=== PATIENT | male | born 1950 | race Two or more races ===

== ENCOUNTER 2021-11-14 14:00 | Outpatient (REF) | payer MEDICARE, SELFPAY ==
[2021-11-14 14:35] LABS: Estimated Average Glucose 114 mg/dL; Hemoglobin A1c % 5.6 %
[2021-11-14 14:46] LABS: Alanine Aminotransferase 25 U/L (0-40); Albumin Level 4.4 g/dL (3.5-5.0); Alkaline Phosphatase 59 U/L (39-117); Anion Gap 11 (12-20); Aspartate Amino Transferase 15 U/L (5-37); Bilirubin Total 0.2 mg/dL (0.0-1.0); Blood Urea Nitrogen 16 mg/dL (9-16); Calcium 10.3 mg/dL (8.4-10.2); Carbon Dioxide 29 mmol/L (22-29); Chloride 106 mmol/L (96-108); Estimated Glomerular Filt Rate > 60; Glucose Random 104 mg/dL (60-115); Potassium 4.5 mmol/L (3.3-5.1); Sodium 141 mmol/L (135-145); Total Protein 7.4 g/dL (6.5-8.0)
[2021-11-14 15:06] LABS: Prostate Specific Antigen 2.25 ng/mL (<0.05-4.0)
== END 2021-11-14 14:01 | disposition home or self-care (01) ==
LOC: HO.LAB 14:00
PROVIDERS: PCP Internal Medicine; Visit Provider Internal Medicine
DX: E11.9 Type 2 diabetes mellitus without complications (principal); E78.00 Pure hypercholesterolemia, unspecified; F33.42 Major depressive disorder, recurrent, in full remission; K22.70 Barrett's esophagus without dysplasia; M19.90 Unspecified osteoarthritis, unspecified site; N40.1 Benign prostatic hyperplasia with lower urinary tract symptoms; N13.8 Other obstructive and reflux uropathy; Z12.5 Encounter for screening for malignant neoplasm of prostate
CPT/HCPCS: 36415; 80053; 83036; 84153

== ENCOUNTER 2021-11-18 18:14 | Emergency (ER) | payer MEDICARE, MEDICAID, SELFPAY ==
[2021-11-18 18:36] VITALS: BP 134/73; PULSE 64; RESP 18; TEMP 36.7; O2SAT 98
[2021-11-18 18:58] LABS: COVID-19 Test Negative (Negative)
[2021-11-18 19:33] VITALS: BMI 26.1
--- NOTE | 2021-11-18 20:06 | ED_ITS ---
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 He presents with his with similar symptoms. He is fully vaccinated for COVID-19 with all 3 vaccines. He did have a family gathering around [place] time with a family member who is known to be ill. Unknown if this person has been diagnosed with COVID or not. He denies any fever or chills. His main complaint is diffuse body aches. He does have a mild dry cough but had denies any shortness of breath or chest pain. No fevers at home. MD elicited complaint: cough and other (Headache and body aches) Onset (ago): day(s) (1) Consistency: intermittent Severity: mild Able to tolerate fluids by mouth: Yes Exacerbating factors: nothing Relieving factors: nothing Context: sick contacts Associated symptoms: myalgias, headache, nasal congestion and cough Treatments prior to arrival: none Related Data Allergies Allergy/AdvReac Type Severity Reaction Status Date / Time No Known Allergies Allergy Mild NKA Unverified 08/05/20 17:28 Review of Systems Review of Systems: Constitutional: No Fever, No Chills ENT/Mouth: No sore throat, No Rhinorrhea, No Swallowing Difficulty Cardiovascular: No Chest Pain, No SOB Respiratory: + Cough, No Sputum Gastrointestinal: No Nausea, No Vomiting, No abdominal Pain Musculoskeletal: No joint pain, + Myalgias Skin: No Skin Lesions, No rash Neuro: No Weakness, No Numbness, No Dizziness, + Headache Heme/Lymph: No Lymphadenopathy PMFSH Social History Social History Advance Directives: No Physical Exam Vital Signs: Vital Signs: Last Vital Signs Temp 98.1 F 11/18/21 18:36 Pulse 64 11/18/21 18:36 Resp 18 11/18/21 18:36 BP 134/73 11/18/21 18:36 Pulse Ox 98 11/18/21 18:36 BMI result Body Mass Index 26.1 Appearance: Alert. Oriented X3. No acute distress. Eyes: Pupils equal, round and reactive to light. ENT: Pharynx normal. Neck: Normal inspection. Neck supple. CVS: Normal heart rate and rhythm. Pulses normal. Respiratory: No respiratory distress. Breath sounds normal. Skin: Skin warm and dry. Normal skin color. Normal skin turgor. No rashes. Extremities: No lower extremity edema. No calf tenderness. Neuro: Oriented X 3. Grossly normal, nonfocal Course Course Course Narrative: 8-year-old male presents to the ER with body aches, headache, dry cough that started yesterday. He presents as was the same symptoms. They have known exposure to ill family member. Unknown if COVID. Exam is benign and vital signs are normal on arrival. Presentation is consistent with COVID-19 versus other viral syndrome. Rapid antigen test is negative. Will send PCR test for COVID, influenza and RSV. MDM - URI/Sore Throat Lab Data Labs: Lab Results 11/18/21 Range/Units 18:34 COVID-19 ([facility]EL[facility]) Negative (Negative) COVID-19 Clin Com See Note Critical Care Time Critical Care Time Critical Care Time: No Discharge Plan Discharge Clinical Impression: Acute viral syndrome Patient Disposition: Home, Self-Care
[2021-11-18 20:29] LABS: Influenza A PCR NEGATIVE (Negative); Influenza B PCR NEGATIVE (Negative); Resp Syncy Virus RNA Qual PCR NEGATIVE (Negative); SARS COV2 PCR INHOUSE NEGATIVE (Negative)
== END 2021-11-18 22:42 | disposition home or self-care (01) ==
PROVIDERS: Physician Assistant; Emergency Provider Internal Medicine; PCP Internal Medicine
DX: B34.9 Viral infection, unspecified (principal); Z20.822 Contact with and (suspected) exposure to COVID-19
CPT/HCPCS: 0241U; 36415; 87635; 99283

== ENCOUNTER → 2022-05-18 09:36 | Outpatient (BNVA) | payer MEDICARE, MEDICAID, SELFPAY | PROVIDERS: PCP Internal Medicine; Visit Provider Urology | DX: N50.819 Testicular pain, unspecified (principal) | CPT/HCPCS: 51798; 99202 ==

== ENCOUNTER 2022-07-03 13:21 | Outpatient (REF) | payer MEDICARE, MEDICAID, SELFPAY ==
--- NOTE | ~2022-07-03 | XR_ITS ---
EXAMINATION: XR SHOULDER, RIGHT CLINICAL INFORMATION: Shoulder pain COMPARISON: None TECHNIQUE: Right shoulder is imaged in 3 views. FINDINGS: No fracture, dislocation, destructive process. The glenohumeral joint shows no narrowing or erosive change. There is fine subcortical cyst near rotator cuff insertion greater tuberosity. The acromioclavicular alignment is normal. There are no visible rotator cuff calcifications. XR/XR shoulder RT min 2V IMPRESSION: Unremarkable right shoulder.
== END 2022-07-03 13:22 | disposition home or self-care (01) ==
LOC: HO.HOSX 13:21
PROVIDERS: Visit Provider Orthopaedic Surgery
DX: M25.511 Pain in right shoulder (principal); M75.41 Impingement syndrome of right shoulder
CPT/HCPCS: 20610; 73030; 99202; J1100

== ENCOUNTER 2022-08-11 12:00 | Outpatient (RCR) | payer MEDICARE, MEDICAID, SELFPAY ==
[2022-07-14 09:15] VITALS: BP 152/70; PULSE 56; O2SAT 98
--- NOTE | 2022-08-16 13:29 | MHC.PT.DC ---
[facility] [place] Office [place] Office [place] Office [address] Boogie Crowder [address] [phone] F: [phone] F: [phone] F: [phone] F: [phone] Physical Therapy Discharge Report Diagnosis: Rt SHOULDER IMPINGEMENT SYNDROME Date of Surgery: Date of Evaluation: 07/14/22 Date of Discharge: 08/16/22 Treatments to Date: 7 Cancellations to Date: No Shows to Date: 1 Discharge Status: Achieved Goals Improved Function Independent with HEP Discharge Summary: Pt PROGRESSED WELL IN PT EVIDENT W IMPROVED SPADI SCORE -> AT EVAL 109/130 AND AT D/C 61/130. HIS SUBJECTIVE PAIN RATING HAS SIGNIF RESOLVED AND HE HAS BAAN ABLE TO RESUME REG ADLs/ HOBBIES W/O SXS. HE IS D/C'D AT THIS TIME W [facility]IS HEP Electronically signed by: BENTON POWELL,PT Please sign and return to therapist. Thank you for your referral.
== END 2022-08-16 13:29 | disposition home or self-care (01) ==
LOC: HO.PT 12:00
PROVIDERS: PCP Internal Medicine; Visit Provider Orthopaedic Surgery
DX: M75.41 Impingement syndrome of right shoulder (principal)
CPT/HCPCS: 97110; 97140; 97161; 97530

== ENCOUNTER → 2022-08-21 12:33 | Outpatient (BNVA) | payer MEDICARE, MEDICAID, SELFPAY | PROVIDERS: PCP Internal Medicine; Visit Provider Orthopaedic Surgery | DX: M75.41 Impingement syndrome of right shoulder (principal) | CPT/HCPCS: 99212 ==

== ENCOUNTER 2022-09-08 10:16 | Outpatient (REF) | payer MEDICARE, MEDICAID, SELFPAY ==
--- NOTE | ~2022-09-08 | MR_ITS ---
EXAMINATION: MR SHOULDER WITHOUT CONTRAST, RIGHT CLINICAL INFORMATION: Impingement syndrome. COMPARISON: X-ray of the right shoulder June 2022. TECHNIQUE: MRI of the shoulder without contrast was performed on a high-field scanner. Exam is limited as the patient could only tolerate a single series, the axial PD fat-sat sequence. FINDINGS: Exam is limited as the patient could not complete more than 1 series of the examination. ROTATOR CUFF: Limited evaluation. Tendinosis of the distal subscapularis. Suspect insertional tear of this supraspinatus the tendon measuring up to 2 cm AP. Suspect abnormality of the infraspinatus likely reflecting tendinosis or intrasubstance partial tearing. Teres minor normal. BICEPS: Evaluation is limited. Biceps appears intact. CORACOACROMIAL ARCH: Mild arthrosis of the acromioclavicular joint. BURSA: Increased fluid in the subacromial subdeltoid bursa. LABRUM/CAPSULE: Evaluation is limited. No definite abnormality. GLENOHUMERAL JOINT/MARROW: Evaluation is limited. No apparent arthrosis. Mild joint effusion and synovitis. MR/MR shoulder RT wo con IMPRESSION: 1. Exam is limited as the patient could not complete the exam. Only a single axial series was performed. Recommend repeat examination perhaps with medication to help the patient through the procedure. Alternatively the patient could undergo ultrasound or CT arthrography to assess for rotator cuff tear. 2. Probable insertional full-thickness tear of the supraspinatus. 3. Tendinosis of the subscapularis. Probable scattered areas of interstitial partial tearing and tendinosis of the infraspinatus. 4. Mild arthrosis of the acromioclavicular joint. 5. Increased fluid in the subacromial subdeltoid bursa compatible with bursitis. 6. Mild joint effusion and synovitis of the glenohumeral joint.
== END 2022-09-08 10:17 | disposition home or self-care (01) ==
LOC: HO.MRI 10:16
PROVIDERS: PCP Internal Medicine; Visit Provider Orthopaedic Surgery
DX: M75.41 Impingement syndrome of right shoulder (principal)
CPT/HCPCS: 73221

== ENCOUNTER → 2022-09-14 14:05 | Outpatient (BNVA) | payer MEDICARE, MEDICAID, SELFPAY | PROVIDERS: PCP Internal Medicine; Visit Provider Orthopaedic Surgery | DX: M75.41 Impingement syndrome of right shoulder (principal) | CPT/HCPCS: 20610; 99212; J1100 ==

== ENCOUNTER 2024-01-06 10:07 | Emergency (ER) | payer MEDICARE, MEDICAID, SELFPAY ==
--- NOTE | ~2024-01-06 | XR_ITS ---
EXAMINATION: XR CHEST CLINICAL INFORMATION: Dizziness COMPARISON: None available. TECHNIQUE: Frontal view of the chest was obtained. FINDINGS: The cardiomediastinal silhouette is within normal limits. The lungs are well expanded. There is no focal consolidation, edema, or effusion. No pneumothorax. No acute osseous abnormality. XR/XR chest 1V IMPRESSION: No acute pulmonary process.
[2024-01-06 10:13] VITALS: BP 156/79; PULSE 94; RESP 18; TEMP 36.9; O2SAT 98; BMI 26.9
--- NOTE | 2024-01-06 10:17 | ECG_ITS ---
Test Reason : DIZZY Blood Pressure : / mmHG Vent. 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
[2024-01-06 10:50] LABS: MANUAL DIFF FLAG NO
[2024-01-06 11:00] LABS: Basophils Percent Auto 0.6 % (0-2); Eosinophils Percent Auto 0.3 % (0-4); Hematocrit 43.8 % (42.0-52.0); Hemoglobin 14.8 g/dl (14.0-18.0); Imm Gran Abs Auto 0.02 X10*3/uL (0.00-0.03); Imm Gran Pct Auto 0.3 % (0.0-0.4); Lymphocytes Absolute Auto 0.8 X10*3/uL (1.2-4.9); Mean Corpuscular HGB Conc 33.8 g/dl (31.0-36.0); Mean Corpuscular Hemoglobin 27.4 pg (27.0-33.0); Mean Corpuscular Volume 81.1 fL (80.0-98.0); Mean Platelet Volume 12.9 fL (9.4-12.4); Monocytes Absolute Auto 0.9 X10*3/uL (0.1-1.2); Monocytes Percent Auto 13.1 % (2-11); Neutrophils Absolute Auto 4.9 x10*3/uL (2.0-8.3); Neutrophils Percent Auto 73.7 % (45-73); Platelet Count 126 X10*3/uL (160-400); Red Cell Distribution Width 14.3 % (11.0-16.0); White Blood Count 6.6 X10*3/uL (4.8-10.8)
[2024-01-06 11:10] LABS: Alanine Aminotransferase 16 U/L (0-40); Albumin Level 4.6 g/dL (3.5-5.0); Alkaline Phosphatase 72 U/L (39-117); Anion Gap 12 (12-20); Aspartate Amino Transferase 14 U/L (5-37); Bilirubin Direct 0.2 mg/dL (0.0-0.5); Bilirubin Total 0.4 mg/dL (0.0-1.0); Blood Urea Nitrogen 14 mg/dL (9-16); Carbon Dioxide 23 mmol/L (22-29); Chloride 106 mmol/L (96-108); Creatinine Clr Calc Pharmacy 62.9; Estimated Glomerular Filt Rate > 60; Glucose Random 101 mg/dL (60-115); Potassium 3.9 mmol/L (3.3-5.1); Sodium 137 mmol/L (135-145)
[2024-01-06 11:23] VITALS: BP 155/75; PULSE 75; RESP 22; TEMP 38.3; O2SAT 97
[2024-01-06 11:29] LABS: Influenza A PCR NEGATIVE (Negative); Influenza B PCR NEGATIVE (Negative); Resp Syncy Virus RNA Qual PCR NEGATIVE (Negative); SARS COV2 PCR INHOUSE NEGATIVE (Negative)
--- NOTE | 2024-01-06 12:17 | ED.GENADULT ---
HPI - General Adult General Chief complaint: Fever Stated complaint: Fever, dizziness Time Seen by Provider: 01/06/24 11:59 Source: patient Mode of arrival: ambulatory Limitations: no limitations History of Present Illness HPI narrative: 73 years old male presented to the emergency department complaining of cough congestion fever since yesterday denies any vomiting any diarrhea any abdominal pain. Onset (ago): day(s) (1) Radiation: non-radiation Severity: mild Related Data Home Medications Medication Instructions Recorded Confirmed fluoxetine 20 mg capsule 20 mg PO QAM 07/03/22 naproxen 500 mg tablet 500 mg PO BID 07/03/22 omeprazole 20 mg capsule,delayed 20 mg PO DAILY 07/03/22 release Previous Rx's Medication Instructions Recorded amoxicillin 500 mg capsule 500 mg PO Q8H #21 caps 01/06/24 Allergies Allergy/AdvReac Type Severity Reaction Status Date / Time No Known Allergies Allergy Mild NKA Verified 09/14/22 14:09 Review of Systems ENT: Reports system reviewed and no additional complaints, except as documented Cardiovascular: Cardiovascular: Reports no additional cardiovascular complaints Respiratory: Respiratory: Reports no additional respiratory complaints [facility] Past Medical History [facility] Narrative: No past medical history Social History Social History Smoked in Last 30 Days: No Use of substances other than those prescribed or required for medical reasons: No Advance Directives: No Advance Directives Information Provided: Yes Physical Exam ED Vital Signs: Vital Signs - 24 hr 01/06/24 10:13 01/06/24 11:23 01/06/24 13:39 Temperature 98.4 F 101.0 F H Pulse Rate 94 75 75 Respiratory Rate 18 22 H 20 Blood Pressure 156/79 H 155/75 H 140/75 H Pulse Oximetry 98 97 95 Oxygen Delivery Method Room Air Room Air Room Air 01/06/24 15:19 Temperature 100.8 F H Pulse Rate 82 Respiratory Rate 16 Blood Pressure 119/80 Pulse Oximetry 95 Oxygen Delivery Method Room Air BMI result Body Mass Index 26.9 Const General: cooperative Nutritional Appearance: well nourished Orientation/consciousness: patient oriented x3 Limitations: no limitations HENMT Head: Yes normal to inspection General nose exam: Normal external nose present Face and sinus: Yes normal facial exam Mouth: Normal oral and palatal mucosa present Neck Neck: Yes normal visual inspection Chest Chest palpation & inspection: normal inspection of the chest Resp Effort & Inspection: normal respiratory effort Auscultation: clear to auscultation bilaterally Cardio Jugular venous distension: no JVD Rate: regular rate Rhythm: regular rhythm GI Inspection: Yes normal to inspection Palpation (GI): Soft to palpation Skin General skin exam: no rashes or lesions noted Rashes: no rashes Wounds: no wounds Neuro General: patient oriented x3 Course Reevaluation(s) Reevaluation #1: Remained stable normotensive is lactic acid is normal chest x-ray shows no pneumonia urine is clear most likely this is a viral illness I do not think this patient has sepsis HR his blood pressure is higher 156/79 and his heart rate is 94. Time: 13:30 Reevaluation #2: I want to go home I feel better Medications Administered Discontinued Medications Generic Name Dose Route Start Last Admin Trade Name Freq PRN Reason Stop Dose Admin Acetaminophen 975 mg 01/06/24 12:16 01/06/24 13:37 Acetaminophen 325 Mg Tablet PO 01/06/24 12:17 975 mg ONCE ONE Administration Sodium Chloride 1,000 mls @ 999 mls/hr 01/06/24 12:30 01/06/24 12:47 Ns IVCONT 01/06/24 13:30 999 mls/hr .[id number] MAGI Administration Medical Decision Making Medical Decision Making [facility] Narrative: Patient presented to emergency department with a chief complaint of fever malaise. Will obtain chest x-ray labs viral panel and reassessed . 15:25 THE PATIENT IS FEELING MUCH BETTER THE ETIOLOGY OF THE FEVER IS IN UNCLEAR WHETHER CLINICALLY FEELS WELL HIS LACTIC ACID IS NORMAL CHEST X-RAY IS NORMAL IS URINE ARE NORMAL HE DOES HAVE A COUGH SO THEREFORE I THINK GOING TO SEND HIM HOME OF WITH ANTIBIOTIC AND TREAT HIM A POSSIBLE BRONCHITIS PATIENT AND ARE VERY COMFORTABLE WITH THE PLAN OF CARE ;ON THE BLOOD WORK I DISCLOSED TO HIM THAT HIS PLATELET COUNT IS A LITTLE LOW WILL NEED TO BE CHECKED WITH OUTPATIENT I GAVE HIM A COPY OF THE BLOOD WORK RESULT TO BRING TO HIS PRIMARY CARE PHYSICIAN Differential Diagnosis Differential Diagnoses: The differential diagnosis associated with the presentation includes Differential diagnosis viral illness/pneumonia/COVID/flu Admission/Observation Consideration of admission/observation: Escalation of care including admission/observation considered Lab Data [facility] Lab Attestation statement: I reviewed the patient's lab results. 01/06/24 10:45 02/18/24 10:45 Labs: Lab Results 01/06/24 01/06/24 Range/Units 10:45 12:42 WBC 6.6 (4.8-10.8) X10*3/uL RBC 5.40 (4.60-5.80) X10*6/uL Hgb 14.8 (14.0-18.0) g/dl Hct 43.8 (42.0-52.0) % MCV 81.1 (80.0-98.0) fL MCH 27.4 (27.0-33.0) pg MCHC 33.8 (31.0-36.0) g/dl RDW 14.3 (11.0-16.0) % Plt Count 126 L (160-400) X10*3/uL MPV 12.9 H (9.4-12.4) fL Immature Gran % (Auto) 0.3 (0.0-0.4) % Neut % (Auto) 73.7 H (45-73) % Lymph % (Auto) 12.0 L (20-40) % [place] % (Auto) 13.1 H (2-11) % Eos % (Auto) 0.3 (0-4) % Baso % (Auto) 0.6 (0-2) % Lymph # (Auto) 0.8 L (1.2-4.9) X10*3/uL [place] # (Auto) 0.9 (0.1-1.2) X10*3/uL Eos # (Auto) 0.0 (0.0-0.4) X10*3/uL Baso # (Auto) 0.0 (0.0-0.2) X10*3/uL Abs Immat Gran (auto) 0.02 (0.00-0.03) X10*3/uL Absolute Neuts (auto) 4.9 (2.0-8.3) x10*3/uL Absolute Nucleated RBC 0.000 (0.0-0.012) X10*3/uL Nucleated RBC % (auto) 0.0 (0.0-0.2) /100WBC Sodium 137 (135-145) mmol/L Potassium 3.9 (3.3-5.1) mmol/L Chloride 106 (96-108) mmol/L Carbon Dioxide 23 (22-29) mmol/L Anion Gap 12 (12-20) BUN 14 (9-16) mg/dL Creatinine 1.06 (0.5-1.4) mg/dL Estim Creat Clear Calc 62.9 Estimated GFR > 60 Random Glucose 101 (60-115) mg/dL Lactic Acid 1.0 (0.5-2.0) mmol/L Calcium 10.0 (8.4-10.2) mg/dL Total Bilirubin 0.4 (0.0-1.0) mg/dL Direct Bilirubin 0.2 (0.0-0.5) mg/dL AST 14 (5-37) U/L ALT 16 (0-40) U/L Alkaline Phosphatase 72 (39-117) U/L Total Protein 8.0 (6.5-8.0) g/dL Albumin 4.6 (3.5-5.0) g/dL Influenza Type A (PCR) NEGATIVE (Negative) Influenza Type B (PCR) NEGATIVE (Negative) RSV RNA Qual (PCR) NEGATIVE (Negative) SARS-CoV-2 RNA (RT-PCR) NEGATIVE (Negative) Prescription Management I considered prescription management with: Antibiotic Discharge Plan Discharge Clinical Impression: Fever, Bronchitis Patient Disposition: Home, Self-Care Instructions: Fever in Adults (ED) Additional Instructions: FOLLOW-UP WITH YOUR PRIMARY CARE PHYSICIAN RETURN IF YOU WORSE. YOU ARE STATING NOW THAT YOU ARE FEELING BETTER. WE DISCUSSED YOUR PLATELET COUNT WAS IN THE LOW SIDE THAT WILL NEED TO BE RECHECKED OUTPATIENT BY YOUR PRIMARY CARE PHYSICIAN WE GAVE YOU A COPY OF THE BLOOD TESTS Prescriptions: New amoxicillin 500 mg capsule 500 mg PO Q8H Qty: 21 0RF No Action naproxen 500 mg tablet 500 mg PO BID fluoxetine 20 mg capsule 20 mg PO QAM omeprazole 20 mg capsule,delayed release(DR/EC) 20 mg PO DAILY Referrals: Physician,Unknown J [Primary Care Provider] - 3 days (FOLLOW-UP WITH YOUR PRIMARY CARE PHYSICIAN, TAKE ANTIBIOTIC DIRECTED, RETURN IF YOU ARE WORSE, I AM WORKING TOMORROW FROM 7-4 YOU WELCOME TO COME BACK IF YOU WORSE. WE DISCUSSED YOUR PLATELET COUNT WAS IN THE LOW SIDE THAT WILL NEED TO BE RECHECKED OUTPATIENT.)
[2024-01-06] MEDS: 0.9 % Sodium Chloride 1,000 ML 999 ML IVCONT (12:47)
[2024-01-06] MEDS: Acetaminophen 325 MG TABLET 975 MG PO (13:37)
[2024-01-06 13:39] VITALS: BP 140/75; PULSE 75; RESP 20; O2SAT 95
[2024-01-06 15:19] VITALS: BP 119/80; PULSE 82; RESP 16; TEMP 38.2; O2SAT 95
[2024-01-06] MEDS: Ibuprofen 600 MG TABLET PO (15:32)
[2024-01-06] MEDS: cefTRIAXone sodium 1 GM in 0.9 % Sodium Chloride 50 ML IV (15:33)
--- NOTE | 2024-01-06 15:34 | PC.NURSE ---
repeat rectal temp obtained displaying 100.8 despite medication administration. provider notified/aware. medication administered per provider order.
== END 2024-01-06 16:31 | disposition home or self-care (01) ==
PROVIDERS: Emergency Provider Emergency Medicine
DX: J40 Bronchitis, not specified as acute or chronic (principal); R50.9 Fever, unspecified; I45.10 Unspecified right bundle-branch block; R05.9 Cough, unspecified; R42 Dizziness and giddiness; Z20.822 Contact with and (suspected) exposure to COVID-19; Z20.828 Contact with and (suspected) exposure to other viral communicable diseases; Z79.899 Other long term (current) drug therapy
CPT/HCPCS: 0241U; 36415; 71045; 80048; 80076; 83605; 85025; 87040; 93005; 96361; 96365; 99284; 99285; J0696

== ENCOUNTER → 2024-01-06 10:17 | Outpatient (BNV) | payer MEDICARE, MEDICAID, SELFPAY | PROVIDERS: Emergency Provider Emergency Medicine; Visit Provider Internal Medicine Cardiovascular Disease | DX: R94.31 Abnormal electrocardiogram [ECG] [EKG] (principal); I45.10 Unspecified right bundle-branch block | CPT/HCPCS: 93010 ==